=== PATIENT | female | born 1955 | race African-American/Black ===

== ENCOUNTER 2017-04-08 11:24 | Emergency (ER) | payer OTHER ==
[2017-04-08 11:58] VITALS: BP 150/74; PULSE 83; TEMP 98; BMI 28.1
--- NOTE | 2017-04-08 12:00 | PDOC ---
History of Present Illness - General Chief Complaint: Respiratory Stated Complaint: COUGH Time Seen by Provider: 04/08/17 12:00 History Source: Patient Exam Limitations: No Limitations - History of Present Illness Initial Comments: 04/08/17 12:33 61F with pmh of Dm2 (on humalog, glargine and metformin) and HTN presents with week-long dry cough and sinus congestion worse when while prone in bed. 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 Called her PCP Dr. Altamirano who gave her Rx for Z-pack and Amoxicillin but symptoms persevered. Constellation of symptoms started around thanksgiving but somewhat resolved before resuming last week. Currently taking dayquil, nyquil, dextrometorphan for symptom relief. Last checked her blood sugar a week ago, was in the 230's. Admits to not being compliant with her insulin glargine and humalog recently but always is with her metformin. admits to chills and some generalized muscle pain. Denies sore throat, hemoptysis,rashes, dysuria, nausea, vomiting, diarrhea. 04/08/17 12:40 Past History - Past Medical History Allergies/Adverse Reactions: Allergies Allergy/AdvReac Type Severity Reaction Status Date / Time levofloxacin [From Levaquin] Allergy Intermediate Verified 04/08/17 11:29 adhesive tape Allergy Intermediate Uncoded 04/08/17 11:29 Home Medications: Ambulatory Orders Aspirin [Baby Aspirin] 81 mg PO DAILY 07/27/11 Clopidogrel Bisulfate [Plavix] 75 mg PO DAILY 07/27/11 Coreg 1 PO DAILY 07/27/11 Furosemide [Lasix] 40 mg PO DAILY 07/27/11 Insulin Glargine,Hum.rec.anlog [Lantus] 40 units SQ AM 07/27/11 Multiple Vitamin 1 PO DAILY 07/27/11 Nifedipine [Procardia Xl] 90 mg PO DAILY 07/27/11 Sevelamer Carbonate [Renvela] 800 mg PO TID 07/27/11 Simvastatin [Zocor] 20 mg PO DAILY 07/27/11 Sliding Scale 07/27/11 Valsartan [Diovan] 160 mg PO DAILY 07/27/11 Benzonatate [Tessalon Pearls -] 200 mg PO TID #42 cap 04/08/17 Guaifenesin/Dextromethorphan [Diabetic Tussin Dm Max-Str Liq] 237 ml PO PRN #10 liquid 04/08/17 COPD: No Diabetes: Yes HTN: Yes Hypercholesterolemia: Yes Other medical history: neuropathy, carpel tunnel - Suicide/Smoking/Psychosocial Hx Smoking History: Never smoked Review of Systems - Review of Systems Able to Perform ROS?: Yes Is the patient limited Indonesian proficient: No Constitutional: Yes: Chills. No: Fever HEENTM: No: Ear Pain, Throat Pain Respiratory: Yes: See HPI. No: Shortness of Breath, Wheezing, Hemoptysis Cardiac (ROS): No: Symptoms Reported ABD/GI: No: Symptoms Reported : No: Symptoms Reported Musculoskeletal: No: Symptoms Reported Integumentary: No: Symptoms Reported Neurological: Yes: Headache All Other Systems: Reviewed and Negative *Physical Exam - Vital Signs Last Vital Signs Temp Pulse Resp BP Pulse Ox 98 F 83 18 150/74 100 04/08/17 11:26 04/08/17 11:26 04/08/17 11:26 04/08/17 11:04/08/17 11:26 - Physical Exam General Appearance: Yes: Nourished, Appropriately Dressed. No: Apparent Distress HEENT: positive: EOMI, SUHA, Nasal Congestion, Rhinorrhea, Hearing Grossly Normal. negative: Tonsillar Exudate, Tonsillar Erythema Neck: positive: Supple. negative: Tender, Lymphadenopathy (R), Lymphadenopathy (L) Respiratory/Chest: positive: Lungs Clear, Normal Breath Sounds. negative: Chest Tender, Respiratory Distress Cardiovascular: positive: Regular Rhythm, Regular Rate, S1, S2 Gastrointestinal/Abdominal: positive: Normal Bowel Sounds, Soft Musculoskeletal: positive: Normal Inspection Extremity: positive: Normal Capillary Refill Integumentary: positive: Normal Color, Dry, Warm. negative: Diaphoresis Neurologic: positive: Fully Oriented, Alert, Normal Mood/Affect, Normal Response , Motor Strength 5/5 Medical Decision Making - Medical Decision Making 04/08/17 12:42 61F with week long post-nasal drip, sinusitis, likely viral. Will check finger stick, chest xray. will avoid pseudoephedrine due to HTN. Chest xray negative for acute pathology Will send prescription for Diabetic Tussin and Tessalon perls. 04/08/17 13:25 *DC/Admit/Observation/Transfer Diagnosis at time of Disposition: Viral sinusitis, Post-nasal drip - Discharge Dispostion Disposition: HOME Condition at time of disposition: Improved Admit: No - Prescriptions Prescriptions: Benzonatate [Tessalon Pearls -] 200 mg PO TID #42 cap Guaifenesin/Dextromethorphan [Diabetic Tussin Dm Max-Str Liq] 237 ml PO PRN #10 liquid - Referrals - Patient Instructions - Post Discharge Activity
--- NOTE | 2017-04-08 12:01 | PDOC ---
Attending Attestation - Resident Resident Name: Jose Gonzalez - HPI HPI: 04/08/17 13:47 Pt presents to the ED complaining of nasal congestion, cough, sinus pressure that have been intermittent since thanksgi, but worse over the last week. Denies fevers, nausea or vomiting. Does complain of "soreness in her chest" that is worse with cough. Given course of augmentin by her PMD without relief. - Physicial Exam PE: 04/08/17 13:52 Agree with resident's exam. Lungs are clear, with good air entry bilaterally. - Medical Decision Making 04/08/17 13:57 Pt presents to the ED complaining of persistent cough. symptoms sound most consistent with post nasal drip. CXR checked to rule out PNA and is negative. Will discharge home with follow up with PMD.
[2017-04-08] MEDS ORDERED: guaiFENesin/D-M SUGAR-FREE/ACLHOL-FREE 118 ML BOTTLE PO ONE (12:31)
[2017-04-08] MEDS ORDERED: guaiFENesin/D-METHORPHAN HB 10 ML UNIT-DOSE CUPS ONE (12:41)
== END 2017-04-08 14:00 | disposition home or self-care (01) ==
LOC: JER 11:24
DX: J32.8 Other chronic sinusitis (principal); B97.89 Other viral agents as the cause of diseases classified elsewhere; I10 Essential (primary) hypertension; E11.9 Type 2 diabetes mellitus without complications; Z79.4 Long term (current) use of insulin; Z79.84 Long term (current) use of oral hypoglycemic drugs; G62.9 Polyneuropathy, unspecified
CPT/HCPCS: 71046-TC; 99282-25

== ENCOUNTER 2017-05-16 09:41 | Emergency (ER) | payer OTHER ==
[2017-05-16 09:48] VITALS: BMI 28.1
--- NOTE | 2017-05-16 11:13 | PDOC ---
History of Present Illness - General Chief Complaint: Cold Symptoms Stated Complaint: COLD SYMPTOMS, DIARRHEA, WEAKNESS Time Seen by Provider: 05/16/17 10:18 - History of Present Illness Initial Comments: 05/16/17 10:33 67 y.o. female with a PMH of IDDM and HTN who presents to our ED c/o 1 day h/o of diarrhea as well as 1 week h/o worsening non-productive cough. Patient states she started coughing last week, however the cough became productively severe over the last week. Patient endorses associated dyspnea however denies any chest pain, lightheadedness, palpitations. Patient evaluated by her PMD, Dr. Altamirano, earlier this week at which time she had a CXR and was started on Amoxicillin/Pip Tazo. Acute onset of diarrhea yesterday evening with 6-7 episodes of watery, non-bloody, brown, non-odorous diarrhea which has persisted today. Patient has been tolerating PO intake but notes decreased appetite. Denies any recent weight loss, abdominal pain, nausea/vomiting, dysuria/ hematuria. NKDA Surgical: hysterectomy, L3-L4 spinal fusion Social: denies cigarettes, denies alcohol, denies recreational drugs Family History: h/o [place] in siblings Past History - Past Medical History Allergies/Adverse Reactions: Allergies Allergy/AdvReac Type Severity Reaction Status Date / Time levofloxacin [From Levaquin] Allergy Intermediate Verified 05/13/17 16:36 clarithromycin [From Biaxin] Allergy Verified 05/16/17 09:48 adhesive tape Allergy Intermediate Uncoded 05/13/17 16:36 Home Medications: Ambulatory Orders Aspirin [Baby Aspirin] 81 mg PO DAILY 07/27/11 Clopidogrel Bisulfate [Plavix] 75 mg PO DAILY 07/27/11 Coreg 1 PO DAILY 07/27/11 Furosemide [Lasix] 40 mg PO DAILY 07/27/11 Insulin Glargine,Hum.rec.anlog [Lantus] 40 units SQ AM 07/27/11 Multiple Vitamin 1 PO DAILY 07/27/11 Nifedipine [Procardia Xl] 90 mg PO DAILY 07/27/11 Sevelamer Carbonate [Renvela] 800 mg PO TID 07/27/11 Simvastatin [Zocor] 20 mg PO DAILY 07/27/11 Sliding Scale 07/27/11 Valsartan [Diovan] 160 mg PO DAILY 07/27/11 Benzonatate [Tessalon Pearls -] 200 mg PO TID #42 cap 04/08/17 Guaifenesin/Dextromethorphan [Diabetic Tussin Dm Max-Str Liq] 237 ml PO PRN #10 liquid 04/08/17 Acetaminophen W/ Codeine #3 [Tylenol # 3 -] 1 tab PO Q6H PRN #12 tablet MDD 4 tabs 05/16/17 Acetaminophen with Codeine [Tylenol with Codeine #3 Tablet] 1 each PO BID PRN # 6 tablet MDD 2 tablets 05/16/17 COPD: No Diabetes: Yes HTN: Yes Hypercholesterolemia: Yes - Suicide/Smoking/Psychosocial Hx Smoking History: Never smoked Hx Alcohol Use: No Drug/Substance Use Hx: No *Physical Exam - Vital Signs Last Vital Signs Temp Pulse Resp BP Pulse Ox 97.9 F 91 H 18 132/75 99 05/16/17 09:45 05/16/17 09:45 05/16/17 09:45 05/16/17 09:45 05/16/17 09:45 - Physical Exam Comments: 05/16/17 17:19 GENERAL: Awake, alert, SpO2 100% on RA HEAD: No signs of trauma EYES: PERRLA, EOMI, sclera anicteric, conjunctiva clear ENT: oropharynx clear without exudates. Moist mucosa NECK: Normal ROM, supple, no lymphadenopathy, JVD, or masses LUNGS: Breath sounds equal, no appreciable wheezes, crackles HEART: Regular rate and rhythm, normal S1 and S2, no murmurs, rubs or gallops ABDOMEN: Soft, nontender, normoactive bowel sounds. No guarding, no rebound. No masses EXTREMITIES: Normal range of motion,No clubbing or cyanosis. No erythema, or tenderness BACK: No midline spinal tenderness in cervical/thoracic/lumbar region NEUROLOGICAL: Normal speech, cranial nerves intact SKIN: Warm, Dry, normal turgor, no rashes or lesions noted. ED Treatment Course - LABORATORY CBC & Chemistry Diagram: 05/16/17 11:11 05/16/17 11:11 - RADIOLOGY Radiology Studies Ordered: Category Date Time Status CHEST PA & LAT [RAD] Stat Radiology 05/16/17 10:55 Ordered Medical Decision Making - Medical Decision Making 05/16/17 10:41 67 y.o. female presents with 1 week h/o of non-productive cough and 1 day h/o of watery, non-bloody brown diarrhea. Tachycardic @ 91. Clinical suspicion for Pneumonia vs. Influenza vs. Antiobiotic Associated Diarrhea. Will obtain CMP for electrolyte derangement 2/2 to diarrhea, CXR to r/o pneumonia as well as Influenza swab. IV NS as tachycardic likely 2/2 to volume depletion. 05/16/17 11:13 Influenza negative. CMP shows no electrolyte derangement. CXR shows no infiltrate/consolidation. Patient symptomatically improved with IV NS and Tylenol + Codeine. Patient advised to stop antibiotic and f/u with PMD in the next 24-48 hours. Patient discharged home with return precautions and outpatient prescription for Tylenol w/Codeine. *DC/Admit/Observation/Transfer Diagnosis at time of Disposition: Cough - Discharge Dispostion Disposition: HOME Condition at time of disposition: Good Admit: No - Prescriptions Prescriptions: Acetaminophen W/ Codeine #3 [Tylenol # 3 -] 1 tab PO Q6H PRN #12 tablet MDD 4 tabs PRN Reason: Cough Acetaminophen with Codeine [Tylenol with Codeine #3 Tablet] 1 each PO BID PRN # 6 tablet MDD 2 tablets PRN Reason: Cough - Referrals Referrals: Khloe Altamirano MD [Primary Care Provider] - - Patient Instructions Additional Instructions: You were evaluated today for your persistent cough and diarrhea. We believe your diarrhea may be caused by your antibiotic prescription. We suggest stopping the antibiotic and returning to Dr. Altamirano for further evaluation. A prescription for your cough has been called to your pharmacy. Please follow-up with Dr. Altamirano in the next 48 hours. Return to the Emergency Department for any new/worsening/concerning symptoms. - Post Discharge Activity
[2017-05-16 11:36] LABS: BASO % 0.4 % (0-2.0); EOS % 0.5 % (0-4.5); HEMATOCRIT 38.9 % (32.4-45.2); HEMOGLOBIN 12.1 GM/dL (10.7-15.3); LYMPH % 35.9 % (8-40); MCH 26.2 pg (25.7-33.7); MCHC 31.2 g/dl (32.0-36.0); MEAN PLT VOLUME 10.1 fl (7.5-11.1); MONO % 13.8 % (3.8-10.2); NEUT % 49.4 % (42.8-82.8); PLATELET COUNT 200 K/MM3 (134-434); RBC 4.64 M/mm3 (3.60-5.2); RDW 14.3 % (11.6-15.6); WHITE BLOOD COUNT 4.4 K/mm3 (4.0-10.0)
[2017-05-16 12:03] LABS: ALBUMIN 3.7 g/dl (3.4-5.0); ALK PHOS 51 U/L (45-117); ANION GAP 10 (8-16); BILIRUBIN,TOTAL 0.2 mg/dL (0.2-1.0); BLOOD UREA NITROGEN 11 mg/dL (7-18); CALCIUM 9.7 mg/dL (8.5-10.1); CHLORIDE 106 mmol/L (98-107); CO2 24 mmol/L (21-32); GLUCOSE,RANDOM 190 mg/dL (74-106); POTASSIUM 4.3 mmol/L (3.5-5.1); SGOT/AST 11 U/L (15-37); SGPT/ALT 18 U/L (12-78); SODIUM 140 mmol/L (136-145); TOT PROT 7.6 g/dl (6.4-8.2)
[2017-05-16] MEDS ORDERED: SODIUM CHLORIDE 1,000 ML IV STA (13:19)
[2017-05-16] MEDS ORDERED: ACETAMINOPHEN W/ CODEINE LIQ 5 ML CUP PO ONE (13:19)
--- NOTE | 2017-05-16 13:25 | PDOC ---
Attending Attestation - Resident Resident Name: MikeyErum - ED Attending Attestation I have performed the following: I have examined & evaluated the patient, The case was reviewed & discussed with the resident, I agree w/resident's findings & plan, Exceptions are as noted - HPI HPI: 05/16/17 13:26 61 F with DM, HTN, presenting to ED with persistent cough x 3 months, as well as 1 day of diarrhea. Pt states that she has been having dry cough without fevers for months. She was seen by Dr. Altamirano 3 days ago and started on abx. However, she notes no improvement since taking the abx and states that she began to have watery brown diarrhea last night. Denies abdominal pain. Denies F/ C. Denies N/V. Pt denies any recent worsening of her cough but states that she feels very weak now due to the diarrhea. Pt denies CP/SOB. - Physicial Exam PE: 05/16/17 13:27 "GENERAL: Awake, alert, and fully oriented, in no acute distress HEAD: No signs of trauma EYES: PERRLA, EOMI, sclera anicteric, conjunctiva clear ENT: Auricles normal inspection, hearing grossly normal, nares patent, oropharynx clear without exudates. Moist mucosa NECK: Nontender, no stepoffs, Normal ROM, supple, no lymphadenopathy, JVD, or masses LUNGS: Breath sounds equal, clear to auscultation bilaterally. No wheezes, and no crackles HEART: Regular rate and rhythm, normal S1 and S2, no murmurs, rubs or gallops ABDOMEN: Soft, nontender, normoactive bowel sounds. No guarding, no rebound. No masses EXTREMITIES: Normal range of motion, no edema. No clubbing or cyanosis. No cords, erythema, or tenderness NEUROLOGICAL: Cranial nerves II through XII intact. 5/5 strength and sensation in all extremities, Normal speech, normal gait SKIN: Warm, Dry, normal turgor, no rashes or lesions noted. " - Medical Decision Making 05/16/17 13:27 61 F with chronic cough x 3 months and diarrhea x 1 day after being started on abx. Diarrhea likely 2/2 abx use. Pt with benign abdomen, no fevers, and no nausea/vomiting. Vitals notable for mild tachycardia HR 91, likely 2/2 volume depletion. - Labs - CXR - stop abx - IVF
[2017-05-16] MEDS ORDERED: ACETAMINOPHEN W/ CODEINE LIQ 5 ML CUP ONE (14:04)
[2017-05-16 15:43] VITALS: BP 123/73; PULSE 81; TEMP 98.6
== END 2017-05-16 15:46 | disposition home or self-care (01) ==
LOC: JER 09:41
PROC: 3E0337Z Introduction of Electrolytic and Water Balance Substance into Peripheral Vein, Percutaneous Approach (ICD-10-PCS; principal; 2017-05-16)
DX: R05 Cough (principal); R19.7 Diarrhea, unspecified; I10 Essential (primary) hypertension; E78.00 Pure hypercholesterolemia, unspecified; E11.9 Type 2 diabetes mellitus without complications; Z79.4 Long term (current) use of insulin
CPT/HCPCS: 36415; 71046-TC-FY; 80053; 85025; 87804; 99282-25

== ENCOUNTER 2017-05-21 05:48 | Emergency (ER) | payer OTHER ==
[2017-05-21 06:12] VITALS: BMI 28.1
[2017-05-21] MEDS ORDERED: ALBUTEROL SO4 2.5/IPRATROPIUM 0.5 INH SOL 3 ML VIAL.NEB. NEB ONE (07:38)
--- NOTE | 2017-05-21 07:45 | PDOC ---
History of Present Illness - General Chief Complaint: Diarrhea Stated Complaint: WEAKNESS,DIARRHEA Time Seen by Provider: 05/21/17 07:19 History Source: Patient Exam Limitations: No Limitations - History of Present Illness Initial Comments: 05/21/17 07:45 61y F hx of IDDM, HTN, presents with complaint of approx 2 weeks of nonproductive cough without fever/chills. Pt notes some chest tightness when she is coughing, denies any chest pain,heymptysis. Pt also endroses increased diarrhea that is watery and orangish for the past 5 days. Pt deines any abd pain , she endorses some nausea without vomiting. Pt states she also feels generally weak with decresaed appetite. The patient denies any recent travel, recent known sick contacts. pt denies history of smoking Pt denies feeling lightheaded, palpitations, melena, bpr. NKDA Surgical: hysterectomy, L3-L4 spinal fusion Social: denies cigarettes, denies alcohol, denies recreational drugs Family History: h/o [place] in siblings Past History - Past Medical History Allergies/Adverse Reactions: Allergies Allergy/AdvReac Type Severity Reaction Status Date / Time levofloxacin [From Levaquin] Allergy Intermediate Verified 05/21/17 06:10 clarithromycin [From Biaxin] Allergy Verified 05/21/17 06:10 adhesive tape Allergy Intermediate Uncoded 05/21/17 06:10 Home Medications: Ambulatory Orders Aspirin [Baby Aspirin] 81 mg PO DAILY 07/27/11 Clopidogrel Bisulfate [Plavix] 75 mg PO DAILY 07/27/11 Furosemide [Lasix] 40 mg PO DAILY 07/27/11 Insulin Glargine,Hum.rec.anlog [Lantus] 40 units SQ AM 07/27/11 Nifedipine [Procardia Xl] 90 mg PO DAILY 07/27/11 Sevelamer Carbonate [Renvela] 800 mg PO TID 07/27/11 Simvastatin [Zocor] 20 mg PO DAILY 07/27/11 Valsartan [Diovan] 160 mg PO DAILY 07/27/11 Guaifenesin/Dextromethorphan [Diabetic Tussin Dm Max-Str Liq] 237 ml PO PRN #10 liquid 04/08/17 Acetaminophen W/ Codeine #3 [Tylenol # 3 -] 1 tab PO Q6H PRN #12 tablet MDD 4 tabs 05/16/17 Acetaminophen with Codeine [Tylenol with Codeine #3 Tablet] 1 each PO BID PRN # 6 tablet MDD 2 tablets 05/16/17 Albuterol Sulfate Inhaler - [Ventolin HFA Inhaler -] 1 - 2 inh PO Q4H PRN #1 inhaler 05/21/17 Benzonatate [Tessalon Pearls -] 100 mg PO TID PRN #12 capsule 05/21/17 Guaifenesin Dm [Robitussin Dm -] 10 ml PO Q8H PRN #12 cup 05/21/17 predniSONE [Deltasone -] 40 mg PO DAILY #8 tablet 05/21/17 COPD: No Diabetes: Yes HTN: Yes Hypercholesterolemia: Yes - Suicide/Smoking/Psychosocial Hx Smoking History: Never smoked Have you smoked in the past 12 months: No Information on smoking cessation initiated: No Hx Alcohol Use: No Drug/Substance Use Hx: No Substance Use Type: None Review of Systems - Review of Systems Able to Perform ROS?: Yes Comments:: 05/21/17 08:31 Constitutional - no reported Fever, Chills, HEENT: no reported vision changes, sore throat Respiratory: +cough, no reported sob, hemoptysis Cardiac:+chest tightness no reported , palpitations, light headedness, leg swelling Abd/GI: +diarrhea no reported abd pain, nausea, vomiting, blood per rectum, melena, : no reported dysuria, frequency, discharge Musculskelatal - no reported back pain, joint swelling skin - no reported bruising, erythema, rash neurological: no reported headache, numbness, focal weakness, tingling, ataxia, hematologic: no reported anemia, easy bruising, easy bleeding *Physical Exam - Vital Signs Last Vital Signs Temp Pulse Resp BP Pulse Ox 97.4 F L 88 18 154/90 100 05/21/17 06:07 05/21/17 06:07 05/21/17 06:07 05/21/17 06:07 05/21/17 06:07 - Physical Exam Comments: 05/21/17 08:32 GENERAL: The patient is awake, alert, and fully oriented, Nontoxic - in no acute distress, intermittent spasms of coughing HEAD: Normocephalic, atraumatic. EYES: extraocular movements intact, sclera anicteric, conjunctiva clear. ENT: Normal voice, Moist mucous membranes. NECK: Normal range of motion, supple LUNGS: scattered wheezing bilaterally HEART: Regular rate and rhythm, normal S1 and S2 without murmur, rub or gallop. ABDOMEN: Soft, nontender, normoactive bowel sounds. No guarding, no rebound. . No CVA tenderness EXTREMITIES: Normal range of motion, no edema. No calf tenderness NEUROLOGICAL: No facial assymetry, Normal speech, PSYCH: Normal mood, normal affect. SKIN: Warm, Dry, normal turgor, Heart Score/ECG Review - ECG Impressions Comment:: 05/21/17 08:32 Twelve-lead EKG was performed and reviewed by me. There is normal sinus rhythm with a normal rate. Rate of 94 The axis is normal. The intervals are normal. There is normal R wave progression Nonspecific T wave abnormality ED Treatment Course - LABORATORY CBC & Chemistry Diagram: 05/21/17 07:46 05/21/17 07:46 - RADIOLOGY Radiology Studies Ordered: Category Date Time Status CHEST X-RAY PORTABLE* [RAD] Stat Radiology 05/21/17 07:38 Ordered Medical Decision Making - Medical Decision Making 05/21/17 08:33 61-year-old female history of diabetes, hypertension presenting with complaint of persistent cough, as well as 5 days of increasing watery/nonbloody stool without associated fevers chills. On exam the patient has intermittent paroxysms of coughing, scattered wheezing bilaterally in her lungs, abdomen is soft and nontender. Her vital signs are unremarkable Suspect a viral syndrome Will rule out metabolic derangements due to her diarrhea Will obtain chest x-ray to rule out pneumonia, EKG to screen for ACS Give the patient a nebulizer see if it'll help with her wheezing and cough. Will reassess 05/21/17 10:22 pts labs reviewed and unremarkable cxr wnl pt notes she recently completed 2 courses of abx suspect her sypmtoms are of viral etiology will give her some tesselon pearls for her cough prednisone and albuterol for eractive aireway/wheezing I discussed the physical exam findings, ancillary test results and final diagnoses with the patient. I answered all of the patient's questions. The patient was satisfied with the care received and felt comfortable with the discharge plan and treatment plan. The patient will call their primary care physician within 24 hours to arrange follow-up and will return to the Emergency Department with any new, persistent or worsening symptoms. *DC/Admit/Observation/Transfer Diagnosis at time of Disposition: Cough Diarrhea Qualifiers: Diarrhea type: unspecified type Qualified Code(s): R19.7 - Diarrhea, unspecified - Discharge Dispostion Disposition: HOME Condition at time of disposition: Improved Admit: No - Prescriptions Prescriptions: Benzonatate [Tessalon Pearls -] 100 mg PO TID PRN #12 capsule PRN Reason: Cough predniSONE [Deltasone -] 40 mg PO DAILY #8 tablet - Referrals Referrals: Khloe Altamirano MD [Primary Care Provider] - - Patient Instructions Printed Discharge Instructions: DI for Cough -- Adult Additional Instructions: Return to the emergency department immediately with ANY new, persistent or worsening symptoms including chest pain, difficulty breathing or other concerns. You MUST call and follow up with your doctor tomorrow for further evaluation of your symptoms. Results were discussed with you. Please make sure your doctor reviews the results of your emergency evaluation. If you had any xrays during your visit, it was read preliminarily by myself, a Radiologist will review it and if there are any additional findings we will call you. - Post Discharge Activity
[2017-05-21 08:01] LABS: BASO % 0.4 % (0-2.0); EOS % 2.3 % (0-4.5); HEMOGLOBIN 11.8 GM/dL (10.7-15.3); LYMPH % 14.8 % (8-40); MCH 26.2 pg (25.7-33.7); MCHC 31.8 g/dl (32.0-36.0); MEAN CELL VOLUME 82.4 fl (80-96); MEAN PLT VOLUME 9.5 fl (7.5-11.1); MONO % 11.3 % (3.8-10.2); NEUT % 71.2 % (42.8-82.8); PLATELET COUNT 228 K/MM3 (134-434); RBC 4.49 M/mm3 (3.60-5.2); RDW 13.5 % (11.6-15.6); WHITE BLOOD COUNT 8.5 K/mm3 (4.0-10.0)
[2017-05-21 08:23] VITALS: TEMP 97.6
[2017-05-21 08:35] LABS: ALBUMIN 3.9 g/dl (3.4-5.0); ANION GAP 10 (8-16); BILIRUBIN,TOTAL 0.3 mg/dL (0.2-1.0); BLOOD UREA NITROGEN 11 mg/dL (7-18); CHLORIDE 102 mmol/L (98-107); CO2 26 mmol/L (21-32); CREATININE 0.8 mg/dL (0.55-1.02); GLUCOSE,RANDOM 171 mg/dL (74-106); MAGNESIUM 1.6 mg/dL (1.8-2.4); POTASSIUM 3.6 mmol/L (3.5-5.1); SGOT/AST 11 U/L (15-37); SGPT/ALT 19 U/L (12-78); SODIUM 138 mmol/L (136-145); TOT PROT 7.8 g/dl (6.4-8.2)
[2017-05-21 08:36] LABS: ALK PHOS 51 U/L (45-117)
[2017-05-21] MEDS ORDERED: guaiFENesin/CODEINE 10 ML UNIT-DOSE CUPS PO ONE (09:31)
[2017-05-21] MEDS ORDERED: guaiFENesin/CODEINE 5 ML UNIT-DOSE CUPS PO ONE (09:36)
[2017-05-21] MEDS ORDERED: predniSONE 20 MG TABLET (UD) PO ONE (10:21)
[2017-05-21] MEDS ORDERED: predniSONE 20 MG TABLET (UD) ONE (10:47)
[2017-05-21 10:51] VITALS: BP 141/70; PULSE 80
--- NOTE | 2017-05-21 16:39 | EKG ---
Test Reason : Blood Pressure : / mmHG Vent. Rate : 094 BPM Atrial Rate : 094 BPM P-R Int : 152 ms QRS Dur : 078 ms QT Int : 342 ms P-R-T Axes : 061 001 073 degrees QTc Int : 427 ms NORMAL SINUS RHYTHM POSSIBLE LEFT ATRIAL ENLARGEMENT NONSPECIFIC T WAVE ABNORMALITY ABNORMAL ECG WHEN COMPARED WITH ECG OF 09-JUL-2009 09:44, new t wave abnormalities in leads I and aVL Confirmed by MD Rin, Chris ([id number]) on 05/21/2017 4:38:43 PM Referred By: Confirmed By:Chris Gar MD
== END 2017-05-21 10:50 | disposition home or self-care (01) ==
LOC: JER 05:48
DX: R05 Cough (principal); R19.7 Diarrhea, unspecified; I10 Essential (primary) hypertension; E78.00 Pure hypercholesterolemia, unspecified; E11.9 Type 2 diabetes mellitus without complications; Z79.84 Long term (current) use of oral hypoglycemic drugs
CPT/HCPCS: 36415; 71045-TC-FY; 80053; 83735; 85025; 93005; 93010; 99284-25

== ENCOUNTER 2017-09-07 11:25 | Emergency (ER) | payer OTHER ==
[2017-09-07 11:48] VITALS: BP 142/42; PULSE 106; TEMP 98; BMI 29.2
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
== END 2017-09-07 12:38 | disposition home or self-care (01) ==
LOC: JERFT 11:25
DX: S00.81XA Abrasion of other part of head, initial encounter (principal); S20.319A Abrasion of unspecified front wall of thorax, initial encounter; S40.812A Abrasion of left upper arm, initial encounter; S40.811A Abrasion of right upper arm, initial encounter; Y04.0XXA Assault by unarmed brawl or fight, initial encounter; Y93.89 Activity, other specified; Y92.89 Other specified places as the place of occurrence of the external cause; Y99.8 Other external cause status; Y07.411 Sister, perpetrator of maltreatment and neglect; I10 Essential (primary) hypertension; E11.9 Type 2 diabetes mellitus without complications; Z79.4 Long term (current) use of insulin; E78.00 Pure hypercholesterolemia, unspecified; G62.9 Polyneuropathy, unspecified
CPT/HCPCS: 99281-25